=== PATIENT | male | born 1965 | race Caucasian/White ===

== ENCOUNTER 2022-10-24 05:59 | Observation (INO) ==
--- NOTE | 2022-10-13 14:19 | Anesthesiology Consultation ---
Date of Service October 13, 2022 Assessment & Plan (1) Encounter for pre-operative examination: Chart Review Chart Review: Acceptable Risk for Surgery and Patient NOT seen in Pre Admission Testing -COVID screening: Per PAT nursing assessment on 10/13/22. No known COVID-19 positive contacts or current COVID-19 related symptoms. Travel screen negative. Patient is NOT vaccinated for Covid. At surgeon discretion if preop Covid testing being done. History Surgery Operation Date: 10/24/22 07:30 Proposed Procedures p Robotic Assisted Laparoscopic Radical Retropubic Prostatectomy, Possible Open, Possible Pelvic Lymph Node Dissection - Michael Champion MD Height/Weight Height: 5 ft 8 in Weight: 73.936 kg Allergies Allergy/AdvReac Type Severity Reaction Status Date / Time No Known Allergies Allergy Verified 10/13/22 13:33 Medications Home Medications Medication Instructions Recorded Confirmed Last Taken multivitamin 1 tab PO DAILY 05/29/22 10/13/22 Unknown Past Medical History Medical History GERD (gastroesophageal reflux disease) Hx > resolved per pt Prostate cancer Past Family History Family History Father Prostate cancer Prostatectomy Colorectal cancer Mother No problems noted. Brother No problems noted. Brother No problems noted. Sister No problems noted. Son No problems noted. Son No problems noted. Past Surgical History Surgical History H/O hemorrhoidectomy History of colonoscopy History of esophagogastroduodenoscopy (EGD) History of prostate biopsy (04/17/22) Dr. Michael Champion at [facility] History of tooth extraction Left inguinal hernia with repair Social History Smoking Status: Never smoker Do You Dip or Chew Tobacco: No Hx Alcohol Use: No Hx Substance Use: No substance use type: does not use Lab Results Anesthesia Preop Results Results Anesthesia Widget: WBC 5.23 K/ul (4.8-10.8) 09/25/22 Hgb 16.6 g/dl (14.0-18.0) 09/25/22 Hct 47.2 % (42.0-52.0) 09/25/22 Plt 228 K/uL (130-400) 09/25/22 Na 137 mmol/L (136-145) 09/25/22 K 4.6 mmol/L (3.5-5.1) 09/25/22 Cl 104 mmol/L (98-107) 09/25/22 CO2 28 mmol/L (21-32) 09/25/22 BUN 15 mg/dl (6-23) 09/25/22 Creat 1.04 mg/dl (0.6-1.4) 09/25/22 Glucose Level 95 mg/dl (70-99(Fasting)) 09/25/22 Testing Laboratory Results 10/05/22= URINE CULTURE: No growth Electrocardiogram Date: 09/25/22 Findings: + NSR @ (67bpm ) Normal EKG per cardio Chest X-Ray Date: 09/25/22 Findings: + NAD
[2022-10-24] MEDS ORDERED: HEPARIN SOD 5,000 UNIT/0.5 ML VIAL SQ SCH ×2 (06:00→21:00)
[2022-10-24] MEDS ORDERED: LACTATED RINGER'S 1,000 ML IV SCH (06:00)
--- NOTE | 2022-10-24 06:52 | History & Physical Report ---
Date of Service October 24, 2022 Assessment & Plan (1) Prostate cancer: Plan: Prostate ca + fam hx previously reviewed all options - , radiation, surgery has elected to pursue surgery risks, benefits, and expectations reviewed again today robotic prostatectomy with lymph node dissection this AM History of Present Illness Primary Care Provider: Joseline Vaughn 57y/o male w/ prostate cancer presenting for robotic prostatectomy as definitive treatment Allergies Allergy/AdvReac Type Severity Reaction Status Date / Time No Known Allergies Allergy Verified 10/24/22 06:23 Home Medications Medication Instructions Recorded Confirmed Type multivitamin 1 tab PO DAILY 05/29/22 10/24/22 History Past Med/Surg History Medical History GERD (gastroesophageal reflux disease) Hx > resolved per pt Prostate cancer Surgical History H/O hemorrhoidectomy History of colonoscopy History of esophagogastroduodenoscopy (EGD) History of prostate biopsy (04/17/22) Dr. Michael Champion at [facility] History of tooth extraction Left inguinal hernia with repair Family History Father Prostate cancer Prostatectomy Colorectal cancer Mother No problems noted. Brother No problems noted. Brother No problems noted. Sister No problems noted. Son No problems noted. Son No problems noted. Social History (System 09/26/22 @ 07:46 by Poonam Barlow) Smoking Status: Never smoker Second Hand Exposure: No; Do You Dip or Chew Tobacco: No; Tobacco Cessation Education Requested by Patient: No Hx Alcohol Use: No Hx Substance Use: No Preferred Language: Guyanese Communication Ability: Effective Visual Impairment: No Limitations Hearing Ability: Normal Enterprise Mobility Architect Required: No Beliefs That Will Affect Care: None marital status: Current Living Situation: Spouse current occupational status: employed current occupation: [employer] How many Children do You have: 2 Other Information That Helps Us Care for You: No Feels Safe at Home: Yes Safety Concerns: Feels Safe At This Time Childhood Exposure to Second-Hand Smoke: No caffeine: Yes (tea) during the past year weight has: remained stable Dental Care, Regularly: Yes Assistive Devices: Glasses Physical Exam Constitutional: well developed and well nourished Neck: neck nontender Respiratory: normal respiratory effort; no respiratory distress and does not use accessory muscles Cardiovascular: Rate/Rhythm: regular rate Vessels: radial pulses present Extremities: no edema Gastrointestinal (Abdomen): Inspection/Auscultation: abdomen normal to inspection Percussion/Palpation: abdomen soft; abdomen nontender and no guarding Musculoskeletal: Head/Neck/Chest: normocephalic and head atraumatic Extremities: extremities normal to inspection Skin: no rashes and no lesions Trauma: no evidence of skin trauma Neurologic: awake; not obtunded Speech / Cognition: normal speech Motor/Sensory: no tremor Psychiatric: Orientation: alert and oriented x 3 Genitourinary: no CVA tenderness Lymphatic: no lymphadenopathy Results & Data Vital Signs (Past 12 Hours) Vital Signs Temp Pulse Resp BP Pulse Ox O2 Del Method 10/24/22 06:24 36.7 C 86 18 145/104 H 97 Room Air
[2022-10-24] MEDS ORDERED: MIDAZOLAM HCL 1 MG/ML 2ML VIAL ONE (07:07)
[2022-10-24] MEDS ORDERED: ROCURONIUM BROMIDE 10 MG/ML 5 ML VIAL IV ONE ×4 (07:07→09:44)
[2022-10-24] MEDS ORDERED: PROPOFOL IV EMULSION 10 MG/ML 20 ML VIAL IV ONE (07:07)
[2022-10-24] MEDS ORDERED: LIDOCAINE 2% 2 ML VIAL/AMP(20MG/ML) INFIL ONE ×3 (07:07→07:13)
[2022-10-24] MEDS ORDERED: ONDANSETRON INJ 2 MG/ML 2 ML VIAL IV PRN ×2 (07:08→12:09)
[2022-10-24] MEDS ORDERED: HYDROmorphone INJ 1 MG/ML SYRINGE IV PRN (07:08)
[2022-10-24] MEDS ORDERED: fentaNYL citrate PF 100 MCG/2 ML VIAL IV PRN (07:08)
[2022-10-24] MEDS ORDERED: ePHEDrine sulfate 50 MG/ML AMP IV PRN (07:08)
[2022-10-24] MEDS ORDERED: ATROPINE SULFATE 0.1 MG/ML 10ML SYR IV PRN (07:08)
[2022-10-24] MEDS ORDERED: PROMETHAZINE HCL 6.25 MG in SODIUM CHLORIDE 0.9% 50 ML IV PRN (07:08)
[2022-10-24] MEDS ORDERED: BUPIVACAINE 0.5 % 5 MG/1 ML MPF 30ML VIAL ONE (07:27)
[2022-10-24] MEDS ORDERED: fentaNYL citrate PF 100 MCG/2 ML VIAL ONE (07:33)
[2022-10-24] MEDS ORDERED: DEXAMETHASONE SOD INJ 4 MG/ML VIAL ONE ×2 (08:06)
[2022-10-24] MEDS ORDERED: HYDROmorphone INJ 2 MG/ML SYR/VIAL ONE (08:27)
[2022-10-24] MEDS ORDERED: FLOSEAL HEMOSTATIC MATRIX 5ML TOP ONE (09:50)
[2022-10-24] MEDS ORDERED: SURGICEL ABSORB HEMOSTAT 2IN X 14IN TOP ONE (09:50)
[2022-10-24] MEDS ORDERED: ONDANSETRON INJ 2 MG/ML 2 ML VIAL ONE ×2 (10:17→10:18)
[2022-10-24] MEDS ORDERED: NEOSTIGMINE METHYLSULFATE 1 MG/ML 10ML VIAL ONE (10:22)
[2022-10-24] MEDS ORDERED: GLYCOPYRROLATE 0.2 MG/ML VIAL ONE ×2 (10:22)
--- NOTE | 2022-10-24 11:15 | Operative Report ---
PG Post Operative Report Pre & Post Diagnosis Operation Date: 10/24/22 07:30 Pre-Op Diagnosis: Prostate Cancer Post-Op Diagnosis: Prostate Cancer I identified the patient and participated in the time-out.: Yes Procedure Operation Date: 10/24/22 07:30 Actual Procedures p Robotic Assisted Laparoscopic Radical Retropubic Prostatectomy, Bilateral Pelvic Lymph Node Dissection(Not Applicable) - Michael Champion MD Surgeon Michael Champion MD Game Programmer Nannette Meraz Estimated Blood Loss 400 Findings Consistent with Post-Op Diagnosis Specimens 1. Periprostatic fat 2. Right pelvic lymph nodes 3. Left pelvic lymph nodes 4. Prostate and seminal vesicles Description of Procedure The patient was identified in the preoperative holding area, appropriate informed consents were reviewed and completed, and he was transported to the operating suite. Subcutaneous heparin was administered in the pre-operative holding area. Upon arrival in the operating suite, he received appropriate antibiotics and general anesthesia. He was positioned in dorsal lithotomy, a B&O suppository was inserted after digital rectal exam, and he was prepped and draped in standard fashion. A Smith catheter was inserted in the sterile field. A Veress needle was passed per umbilicus with uniform insufflation of the abdomen to 15mmHg. He was placed in steep Trendelenburg position. A periumbilical incision was then made to accommodate a 12mm Visiport with 10mm 0degree laparoscope. Inspection of the abdomen was carried out, and there was no evidence of traumatic entry or injury secondary to the Veress needle. After confirming a clear anterior abdominal wall, ports were subsequently placed in standard robotic prostatectomy fashion without incident. To begin the robotic portion of the case, the left lateral aspect of the sigmoid was mobilized off of the left pelvic side wall to allow the pouch of Alex to be appropriately visualized. I then made an incision in the pouch of Alex, overlying the seminal vesicles. Both SVs as well as the ampullae of the vasa were entirely dissected, with the vasa transected 3cm from the prostate. The medial umbilical ligaments were then controlled with bipolar electrocautery just inferior to the umbilicus. Following cauterization, they were divided utilizing monopolar cautery. A peritoneal incision was carried from this location to the medial aspect of the internal inguinal rings bilaterally with care to avoid opening through the ring. This incision was concluded when the vas deferens was reached. Dissection of the bladder and prostate off of the posterior aspect of the pubic arch was completed allowing full visualization of the prostate. The fat overlying the prostate was removed en bloc and passed off the table as a specimen labeled "periprostatic fat". The endopelvic fascia was cleared during this portion of the procedure, and subsequently opened - first on the right and then the left. The incision through the endopelvic fascia began near the prostate-bladder junction and was carried to the apex with extreme care to preserve all lateral levator musculature as well as the periurethral musculature and sphincter complex. I additionally preserved the puboprostatic ligaments. I then controlled the DVC with a 3-0 V-lock suture in overlapping/figure of 8 fashion. The lymph node dissection was then conducted. External iliac vessels were identified on the pelvic side wall. The packet of fat and lymphatic tissue that resides just under the iliac vein was elevated and off of the vein with a split and roll technique. The packet was dissected laterally to the circumflex vein and distally to the obturator nerve which was preserved. The proximal aspect of the packet was carried towards the bifurcation of the iliac vessels. A combination of monopolar and bipolar cautery were used to assist with control. After completing the dissection on both sides, the packets were collected and passed off of the table as specimens labeled "pelvic lymph nodes". My attention then returned to the prostate, with identification of the bladder neck aided by gentle traction on the Smith catheter and lateral to medial pressure at the presumed level of the bladder neck with the robotic instruments. An anterior cystotomy was made, the Smith balloon deflated and the catheter guided through the incision to allow anterior retraction. I attempted to preserve maximal bladder neck musculature as I circumferentially dissected around the bladder neck. Of note, he has a small intravesical median lobe. To complete her posterior dissection behind the median lobe I did place a 0 Vicryl stitch through the median lobe and elevate it. After incision through the posterior aspect of the mucosa, the dissection was carried through detrusor muscle until the bilateral ampullae of the vasa were identified. The previously dissected vasa and SVs were brought through the incision and used to elevated the prostate anteriorly. A posterior plane behind the prostate was then developed - splitting Denonvilliers's fascia. This dissection was carried as far as possible towards the apex as well as far as possible laterally. An incision in the lateral prostatic fascia was then made bilaterally to facilitate control of the vascular pedicles and preservation of the nerve bundles. Vasculature running along the posterior/lateral aspect of the prostate was preserved as well as the tissue containing the nerves. The pedicles were then controlled with a series of Weck clips. The apical attachments of the prostate were remaining at that stage. The DVC was divided after control with bipolar cautery over the prostate. Continuous inspection from anterior and lateral views allowed me to closely follow the apical contour of the prostate and maximally preserve urethral length and tissue. The prostate was entirely freed at that point, and collected in an EndoCatch bag before being moved out of the field of vision. Hemostasis was confirmed and anastomosis of the bladder and urethra was completed utilizing a double armed V- Lock stitch. A new Smith catheter was inserted and the anastomosis tested with irrigation. There was no evidence of leak. A darius style stitch was placed bilaterally to functionally marsupialize the area of the lymph node dissection. The robot was undocked, the specimen extracted through expansion of the vilma- umbilical camera port. The fascia was closed with a series of 0-PDS figure of 8 stitches. The right administrative assistant receptionist port was closed in two layers - with a figure of 8 0-Vicryl to reapproximate the fascia followed by 4-0 Monocryl to close the skin. Monocryl was used to close all other skin incisions. All wounds were dressed with Dermabond. Nannette Meraz assisted from incision to closure. The case was concluded and the patient taken to the PACU in stable condition. I attest to the content of the Intraoperative Record and any orders documented therein. Any exceptions are noted below.
[2022-10-24 11:33] LABS: Hematocrit (blood only) 41.1 % (42.0-52.0); Hemoglobin 14.7 g/dl (14.0-18.0); Mean Corpuscular Hemoglobin 31.1 pg (25.0-34.0); Mean Corpuscular Hgb Conc 35.8 g/dL (32.0-36.0); Mean Corpuscular Volume 86.9 fL (80.0-100.0); Mean Platelet Volume 9.1 fL (9.4-12.4); Platelet Count 180 K/uL (130-400); RDW Standard Deviation 38.3 fL (36.4-46.3); Red Blood Count 4.73 M/uL (4.70-6.10)
[2022-10-24 11:48] LABS: BUN Creatinine Ratio 9.2 (10-20); Calcium 8.8 mg/dl (8.6-10.3); Creatinine Clr Calc Pharmacy 71.5 ml/min; Est GFR (African American) 86.3 ml/min; Est GFR (Non-African American) 74.4 ml/min; Potassium 4.8 mmol/L (3.5-5.1)
[2022-10-24 11:50] LABS: Basophils # (auto) 0.03 K/uL (0-0.2); Basophils % (auto) 0.3 %; Immature Granulocytes # (auto) 0.02 K/uL (0.01-0.20); Immature Granulocytes % (auto) 0.2 %; Lymphocytes % (auto) 5.6 %; Monocytes # (auto) 0.13 K/uL (0.11-0.59); Monocytes % (auto) 1.5 %; Neutrophils # (auto) 8.22 K/uL (1.40-6.50); Neutrophils % (auto) 92.4 %; Toxic Vacuolation 1+
[2022-10-24] MEDS ORDERED: MoRPHine SULFATE 2 MG/ML CARP IV PRN (12:09)
[2022-10-24] MEDS ORDERED: MoRPHine SULFATE 4 MG/ML 1 ML CARP\\VIAL IV PRN (12:09)
[2022-10-24] MEDS ORDERED: oxyCODONE HCL IR 5 MG TAB (IMMEDIATE RELEASE) PO PRN ×2 (12:09)
[2022-10-24] MEDS: ACETAMINOPHEN 325 MG TAB PO PRN ×2 (14:20→19:49)
--- NOTE | 2022-10-24 14:41 | Anesthesiology Progress Note ---
Date of Service October 24, 2022 Anesthesia Post Procedure Vital Signs Vital Signs: Temp Pulse Pulse Resp BP Pulse Ox O2 Del Method 10/24/22 14:30 90 16 149/102 H 94 Room Air 10/24/22 13:30 96 H 16 147/95 H 94 Room Air 10/24/22 13:00 98 H 18 148/95 H 92 Room Air 10/24/22 12:30 85 20 138/91 94 Room Air 10/24/22 12:15 99 H 25 H 139/100 92 Room Air 10/24/22 12:00 87 16 145/94 H 93 Room Air 10/24/22 11:45 86 16 155/93 H 94 Room Air 10/24/22 11:30 86 12 143/95 H 93 Room Air 10/24/22 11:25 36.4 C L 88 12 150/93 H 93 Room Air 10/24/22 11:15 84 14 138/101 H 98 Oxymask 10/24/22 11:05 88 14 143/106 H 98 Oxymask 10/24/22 10:55 36.4 C L 106 H 20 149/117 H 96 Oxymask 10/24/22 06:55 157/95 H 10/24/22 06:24 36.7 C 86 18 145/104 H 97 Room Air O2 Flow Rate 10/24/22 14:30 10/24/22 13:30 10/24/22 13:00 10/24/22 12:30 10/24/22 12:15 10/24/22 12:00 10/24/22 11:45 10/24/22 11:30 10/24/22 11:25 10/24/22 11:15 6 10/24/22 11:05 6 10/24/22 10:55 6 10/24/22 06:55 10/24/22 06:24 Pain Intensity Lower Abdomen: Pain Intensity: 4 Transfer of Care Handoff Completed per policy Notes Mental Status: alert / awake / arousable and participated in evaluation Patient Amnestic to Procedure: Yes Nausea / Vomiting: adequately controlled Pain: adequately controlled Airway Patency, RR, SpO2: stable & adequate BP & HR: stable & adequate Hydration State: stable & adequate Anesthetic Complications: no major complications apparent and Pt Satisfied with anesthetic care
[2022-10-24] MEDS: LACTATED RINGER'S 1,000 ML IV SCH ×2 (14:48→22:53)
[2022-10-24] MEDS: ceFAZolin 2000MG 2,000 MG/15 ML SYR IV SCH ×2 (14:50→22:52)
[2022-10-24] MEDS: DOCUSATE SODIUM 100 MG CAP PO SCH (21:14)
[2022-10-25] MEDS: ACETAMINOPHEN 325 MG TAB PO PRN ×2 (01:42→08:13)
--- NOTE | 2022-10-25 08:06 | Urology Progress Note ---
Date of Service October 25, 2022 Assessment & Plan (1) Prostate cancer: Plan Postop day #1 status post prostatectomy Doing very well Labs pending this morning Has already ambulated Advance diet Plan for discharge home this morning presuming no changes Admission and Anticipated Discharge Date Admission Date: October 24, 2022 Subjective No issues overnight Ambulatory Alireza Feels well Pain well controlled No labs yet this morning but his labs postoperatively were very stable Physical Exam Physical Exam: Urine clear, incisions appropriate Abdomen soft Results & Data Vital Signs (Past 12 Hours) Vital Signs Temp Pulse Resp BP Pulse Ox O2 Del Method 10/25/22 07:53 36.6 C 69 16 153/94 H 95 Room Air 10/25/22 02:55 36.8 C 68 16 137/76 95 Room Air 10/24/22 22:08 37.1 C 72 16 135/90 96 Room Air PG Care Time/CCT Total # of Minutes Spent Total Time Spent with Patient: Total time spent is greater than 50% in coordination of care (as documented) at patient's floor/unit and/or counseling patient: Coding Level of Care Code None Diagnoses Prostate cancer C61
[2022-10-25 08:52] LABS: Basophils # (auto) 0.02 K/uL (0-0.2); Basophils % (auto) 0.2 %; Eosinophils # (auto) 0.02 K/uL (0-0.50); Eosinophils % (auto) 0.2 %; Hematocrit (blood only) 41.1 % (42.0-52.0); Hemoglobin 14.4 g/dl (14.0-18.0); Immature Granulocytes # (auto) 0.02 K/uL (0.01-0.20); Immature Granulocytes % (auto) 0.2 %; Lymphocytes # (auto) 1.71 K/uL (1.2-3.4); Lymphocytes % (auto) 19.6 %; Mean Corpuscular Hemoglobin 30.8 pg (25.0-34.0); Mean Corpuscular Volume 87.8 fL (80.0-100.0); Mean Platelet Volume 9.2 fL (9.4-12.4); Monocytes # (auto) 0.95 K/uL (0.11-0.59); Monocytes % (auto) 10.9 %; Neutrophils # (auto) 6.01 K/uL (1.40-6.50); Neutrophils % (auto) 68.9 %; Platelet Count 205 K/uL (130-400); RDW Coefficient of Variation 12.2 % (11.5-14.5); RDW Standard Deviation 39.3 fL (36.4-46.3); Red Blood Count 4.68 M/uL (4.70-6.10); White Blood Count 8.73 K/ul (4.8-10.8)
[2022-10-25 09:00] LABS: BUN Creatinine Ratio 10.5 (10-20); Calcium 9.1 mg/dl (8.6-10.3); Creatinine Clr Calc Pharmacy 74.2 ml/min; Est GFR (African American) 90.3 ml/min; Est GFR (Non-African American) 77.9 ml/min; Potassium 4.5 mmol/L (3.5-5.1)
[2022-10-25] MEDS: DOCUSATE SODIUM 100 MG CAP PO SCH (09:03)
--- NOTE | 2022-10-25 09:36 | Discharge Summary ---
Date of Service October 25, 2022 Admission HPI Per Admitting Provider 57y/o male w/ prostate cancer presenting for robotic prostatectomy as definitive treatment Admission Exam Per Admitting Provider Constitutional: well developed and well nourished Neck: neck nontender Respiratory: normal respiratory effort; no respiratory distress and does not use accessory muscles Cardiovascular: Rate/Rhythm: regular rate Vessels: radial pulses present Extremities: no edema Gastrointestinal (Abdomen): Inspection/Auscultation: abdomen normal to inspection Percussion/Palpation: abdomen soft; abdomen nontender and no guarding Musculoskeletal: Head/Neck/Chest: normocephalic and head atraumatic Extremities: extremities normal to inspection Skin: no rashes and no lesions Trauma: no evidence of skin trauma Neurologic: awake; not obtunded Speech / Cognition: normal speech Motor/Sensory: no tremor Psychiatric: Orientation: alert and oriented x 3 Genitourinary: no CVA tenderness Lymphatic: no lymphadenopathy Principal Diagnosis Prostate Cancer Discharge Exam Constitutional no acute distress Respiratory no respiratory distress and no labored breathing Gastrointestinal (Abdomen) Incisions appropriate Neurologic moves all extremities and awake Psychiatric A+Ox3, euthymic affect Genitourinary Smith catheter intact Discharge Data Allergies Allergy/AdvReac Type Severity Reaction Status Date / Time No Known Allergies Allergy Verified 10/24/22 06:23 Procedures Performed Operation Date: 10/24/22 07:30 Actual Procedures p Robotic Assisted Laparoscopic Radical Retropubic Prostatectomy, Bilateral Pelvic Lymph Node Dissection(Not Applicable) - Michael Harmon MD Hospital Course (1) Prostate cancer: Plan 57-year-old male admitted status post robotic prostatectomy. Patient tolerated procedure well. No acute issues postoperatively. Remained afebrile and hemodynamically stable. Labs appropriate. Smith catheter intact, draining clear yellow urine. Incisions appropriate. Tolerated diet. Ambulated without issue. Minimal pain. Patient was discharged home on postop day #[address]. He was in stable condition at time of discharge. Discharge instructions were reviewed. All questions were answered. Total Time Total Time Spent Total Time Spent (In Minutes): 15 Discharge Plan Discharge Items Patient Disposition: Home - Self-Care Reason For Visit: Prostate Cancer Discharge Diagnosis: Prostate Cancer Condition on Discharge: Good Activity: Per Instructions section Lifting: No more than 10 pounds Bathing Comment: OK to shower. No tub baths or soaks. Sexual Activity: Wait until after follow-up appointment Exercise/Sports: Wait until after follow-up appointment Driving/Machine Use: Do not drive if taking prescription pain medication. Non-emergency contact: Surgeon and Urologist Call non-emergency contact if: you have any medication questions, your pain is not controlled, your pain is worsening, you have a fever, your wound has increased redness, your wound has increased drainage and your wound pain has increased Follow-up/Referrals: Michael Harmon MD [Physician] - 11/08/22 10:30 am (DR HARMON'S OFFICE STAFF WILL CONTACT YOU WITH A HOSPITAL FOLLOW UP VISIT.) Joseline Vaughn PA-C [Primary Care Provider] - Urology,Nurse [FAKE FOR SCHEDULES] - 10/30/22 9:30 am Diet: Regular Addtl Attending Provider Instructions: Please take all medications as prescribed and keep all follow-ups as scheduled. Please call our office at [phone] with any questions, concerns or need to reschedule appointments for any reason. We are happy to assist you. We have sent an antibiotic to your pharmacy of choice. Please begin antibiotic as prescribed the day BEFORE your scheduled catheter removal at [facility]. Please continue antibiotic every 12 hours until complete. Activity: We recommend having someone with you for the first few days after surgery to help care for you. For the first 2 weeks after surgery, we would like you to get up and walk around your house. However, we recommend limit physical activity that would increase your heart rate. This will allow your body to rest and heal. Take naps if you feel tired. Don't lift anything heavier than 10 pounds, mow the law or ride a bicycle until your follow-up appointment. Please avoid long car rides. Home Care: Unless directed otherwise, drink 6 to 8 glasses of water a day (enough to keep your urine light colored). This will also help keep a healthy flow of urine. We recommend using a stool softener for the first two weeks to avoid constipation. Smith Catheter or Suprapubic Catheter care: Keep the catheter well secured with either a leg back or leg strap with large bag. Empty your bag when it's about half full. You may notice some blood in the bag. This is normal after surgery and while the catheter is in place. Use mild soap (such as Dove or Dial) and water to wash the catheter and the head of your penis daily, or more frequently if needed. Return to your normal diet, we encourage good protein intake to promote healing. You may shower as normal. Please avoid tub baths or soaking until catheter removed and incisions well healed. Wearing sweat pants while you have the catheter is recommended, they will be more comfortable. Follow-up Your follow up appointments for having your catheter removed, and follow up with your physician should already be scheduled. If you have any questions regarding this, please contact our office. Your final pathology report will be discussed at your physician follow-up appointment. Call [facility] at [phone] right away if you have any of the following: Chest pain or trouble breathing (call [phone] or go to the hospital) Fever of 101F or higher, uncontrolled vomiting Heavy bleeding, clots, or bright red blood from the catheter Catheter that falls out or stops draining Foul-smelling discharge from your catheter Redness, swelling, warmth, or increased pain at your incision site Drainage, pus, or bleeding from your incision Pending Studies at Discharge: Yes (pathology) Stand-Alone Forms: [facility] [employer], Smoking Cessation Medications and DC Order Prescriptions: New ciprofloxacin HCl 500 mg tablet 500 mg PO BID 3 Days Qty: 6 0RF Rx Instructions: Start 1 day prior to catheter removal oxycodone-acetaminophen [Percocet] 5-325 mg tablet 1 tab PO Q8H PRN (Reason: pain) Qty: 7 0RF Continued multivitamin Tablet 1 tab PO DAILY Discharge Orders: Discharge Order (Routine); Ordered 10/25/22 Ordered By: Nannette Jefferson/Other Patient Handouts: What Is Prostate Cancer? Admission Data Admit Date/Time: 10/24/22 10:57 Attending Provider: Michael Harmon Admit Provider: Michael Harmon Primary Care Provider: Joseline Vaughn Other Interventions: Discharge Summary Assessment (RN) Last Done: 10/25/22 10:25 Coding Level of Care Code 35258 IN/OBS DISCH 30 MIN/LESS Diagnoses Prostate cancer C61
== END 2022-10-25 10:57 | disposition home or self-care (01) ==
LOC: ASU 05:59 → INTOOBSV 10:57 → PACUINP 10:57 → 3E 16:37